=== PATIENT | male | born 1965 | race Caucasian/White ===

== ENCOUNTER 2024-07-20 10:24 | Outpatient (CLI) | payer BC, SELFPAY | END 2024-07-20 10:25 | disposition home or self-care (01) | PROVIDERS: PCP Physician Assistant Medical; Visit Provider Physician Assistant Medical | DX: Z00.00 Encounter for general adult medical examination without abnormal findings (principal); I10 Essential (primary) hypertension; Z13.6 Encounter for screening for cardiovascular disorders; Z12.5 Encounter for screening for malignant neoplasm of prostate; Z13.29 Encounter for screening for other suspected endocrine disorder; Z13.9 Encounter for screening, unspecified | CPT/HCPCS: 80053; 80061; 84443; G0103 ==

== ENCOUNTER 2024-10-12 10:49 | Outpatient (CLI) | payer BC, SELFPAY | END 2024-10-12 10:50 | disposition home or self-care (01) | LOC: NFLDREF 10-17 13:20 | PROVIDERS: PCP Physician Assistant Medical; Referring Provider Physician Assistant Medical; Visit Provider Physician Assistant Medical | DX: I10 Essential (primary) hypertension (principal) | CPT/HCPCS: 80048 ==

== ENCOUNTER 2025-09-18 10:44 | Outpatient (CLI) | payer BC, SELFPAY | END 2025-09-18 10:45 | disposition home or self-care (01) | LOC: NFLDREF 09-21 13:16 | PROVIDERS: PCP Physician Assistant Medical; Referring Provider Physician Assistant Medical; Visit Provider Physician Assistant Medical | DX: Z00.00 Encounter for general adult medical examination without abnormal findings (principal); I10 Essential (primary) hypertension; R53.82 Chronic fatigue, unspecified; G89.29 Other chronic pain | CPT/HCPCS: 80053; 80061; 82306; 82607; 82728; 84443; G0103 ==